=== PATIENT | female | born 2000 | race Caucasian/White ===

== ENCOUNTER 2024-06-01 15:10 | Emergency (ER) | payer OTHER ==
[2024-06-01 15:19] VITALS: BP 144/87; PULSE 102; RESP 18; TEMP 99; BMI 23.8
[2024-06-01] MEDS ORDERED: ACETAMINOPHEN INJECTION 100 ML IVPB ONE (18:23)
[2024-06-01] MEDS ORDERED: ONDANSETRON 4 MG/2 ML VIAL ONE (18:23)
[2024-06-01] MEDS: ACETAMINOPHEN 1000 MG/100 ML BAG IVPB ONE (19:39)
[2024-06-01] MEDS: ONDANSETRON 4 MG/2 ML VIAL IVPUSH ONE (19:40)
[2024-06-01] MEDS: SODIUM CHLORIDE 0.9% 500 ML INFUS.BAG IV ONE (19:40)
[2024-06-01] MEDS ORDERED: KETOROLAC TROMETHAMINE 30 MG/1 ML VIAL ONE (19:41)
[2024-06-01] MEDS ORDERED: LIDOCAINE 4% PATCH TP ONE (19:52)
[2024-06-01] MEDS: KETOROLAC TROMETHAMINE 30 MG/1 ML VIAL IM ONE (19:59)
[2024-06-01] MEDS: LIDOCAINE 4% PATCH TP ONE (20:00)
[2024-06-01] MEDS ORDERED: LIDOCAINE PATCH REMOVAL MC SCH (22:00)
== END 2024-06-01 21:13 | disposition home or self-care (01) ==
LOC: JER 15:10
PROC: 3E0233Z Introduction of Anti-inflammatory into Muscle, Percutaneous Approach (ICD-10-PCS; principal; 2024-06-01)
DX: R51.9 Headache, unspecified (principal); M54.50 Low back pain, unspecified; W01.198A Fall on same level from slipping, tripping and stumbling with subsequent striking against other object, initial encounter; Y92.009 Unspecified place in unspecified non-institutional (private) residence as the place of occurrence of the external cause
CPT/HCPCS: 36415; 70450-TC; 72125-TC; 72128-TC; 72131-TC; 82962; 84703; 99284-25